=== PATIENT | female | born 2000 | race Two or more races ===

== ENCOUNTER 2025-04-01 11:36 | Outpatient (CLI) | payer OTHER | END 2025-04-01 11:37 | disposition home or self-care (01) | LOC: PRENATAL 11:36 | PROVIDERS: ATTEND Obstetrics & Gynecology Maternal & Fetal Medicine | DX: O26.843 Uterine size-date discrepancy, third trimester (principal); O28.5 Abnormal chromosomal and genetic finding on antenatal screening of mother; Z3A.16 16 weeks gestation of pregnancy ==

== ENCOUNTER → 2025-04-01 12:03 | Outpatient (CLI) | payer OTHER | END | disposition home or self-care (01) | LOC: LAB | PROVIDERS: ATTEND Obstetrics & Gynecology Maternal & Fetal Medicine | DX: O28.5 Abnormal chromosomal and genetic finding on antenatal screening of mother (principal); O28.3 Abnormal ultrasonic finding on antenatal screening of mother ==

== ENCOUNTER 2025-04-23 14:39 | Outpatient (CLI) | payer OTHER | END 2025-04-23 14:44 | disposition home or self-care (01) | LOC: PRENATAL 14:39 | PROVIDERS: ATTEND Obstetrics & Gynecology Maternal & Fetal Medicine | DX: O44.02 Complete placenta previa NOS or without hemorrhage, second trimester (principal); O28.5 Abnormal chromosomal and genetic finding on antenatal screening of mother; Z3A.20 20 weeks gestation of pregnancy ==